=== PATIENT | female | born 1950 | race Caucasian/White ===

== ENCOUNTER 2017-06-29 08:36 | Outpatient (CLI) | payer BC ==
--- NOTE | 2017-06-29 09:34 | RAD ---
2 VIEWS CHEST: Date: 06/29/17 COMPARISON: 03/27/17. HISTORY: Dyspnea. FINDINGS: Two views of the chest show normal sized cardiomediastinal silhouette. There is no evidence of conso lidation, mass, or pleural effusion. The bones are unremarkable. IMPRESSION: No evidence of acute cardiopulmonary disease. POS: [facility]
== END 2017-06-29 08:37 | disposition home or self-care (01) ==
LOC: RAD 08:36
PROVIDERS: ATTEND Internal Medicine Critical Care Medicine
DX: R06.00 Dyspnea, unspecified (principal); R09.02 Hypoxemia
CPT/HCPCS: 71020; 82805

== ENCOUNTER 2017-06-29 09:58 | Outpatient (CLI) | payer BC ==
[2017-06-29 10:47] LABS: Sodium 142 mmol/L (135-148)
[2017-06-29 10:59] LABS: Vent NO
[2017-06-29 11:00] LABS: Mode RA
== END 2017-06-29 09:59 | disposition home or self-care (01) ==
LOC: CP 09:58
PROVIDERS: ATTEND Internal Medicine Critical Care Medicine
DX: R09.02 Hypoxemia (principal)
CPT/HCPCS: 82805

== ENCOUNTER 2018-11-11 15:07 | Inpatient (IN) | payer MEDICARE, BC ==
[2018-11-11] MEDS ORDERED: Morphine 4 MG/ML VIAL ONE ×3 (15:53→17:56)
[2018-11-11 16:06] LABS: Hemoglobin 9.7 g/dL (12.0-16.0); Mean Corpuscular HGB CONC 30.9 g/dL (32.0-36.0); Mean Corpuscular Hemoglobin 34.8 pg (27.0-31.0); Platelet Count 680 thou/uL (130-400); RBC Distribution Width 11.4 % (11.5-14.5); Red Blood Cell (RBC) Count 2.78 mill/uL (4.20-5.40); White Blood Cell (WBC) Count 13.7 thou/uL (4.8-10.8)
[2018-11-11 16:12] LABS: INR-International Normal Ratio 1.1; PTT 32.6 SEC (22.9-36.1); Prothrombin Time 13.8 SEC (12.0-14.7)
--- NOTE | 2018-11-11 16:14 | RAD ---
LEFT ANKLE TWO VIEWS: HISTORY: Left ankle pain. Fall five days ago. TECHNIQUE: AP and lateral views of the left ankle are obtained. FINDINGS: Images demonstrate previous medial malleolar surgical screws in place. Some tibiotalar degenerative changes are seen. No evidence of acute fractures, subluxations, or acute left ankle abnormalities seen. IMPRESSION: No evidence of acute left ankle fractures. POS: [facility]
--- NOTE | 2018-11-11 16:16 | RAD ---
LEFT HIP TWO VIEWS: TECHNIQUE: AP and lateral views of the left hip are obtained. FINDINGS: Again, extensive long-shaft arthroplasty is seen throughout the entire proximal mid and distal left f emoral medullary cavity, extending through the left knee. Again, an intertrochanteric proximal left femoral fracture is seen, as described by Dr. Quick on previous CT from 11/08/2017. There is some displacement of the proximal and distal fracture components. IMPRESSION: Intertrochanteric proximal left femoral fracture. There is some impaction and displacement. POS: [facility]
--- NOTE | 2018-11-11 16:17 | RAD ---
AP VIEW PELVIS: HISTORY: Hip fracture. TECHNIQUE: AP view pelvis is obtained. FINDINGS: Intramedullary anant hardware is seen in the proximal portion of the left femur. A moderately displaced intertrochanteric fracture is seen in the proximal left femur. No other pelvic abnormality is seen. Multilevel changes of spondylosis are seen in the lumbar spine. POS: [facility]
[2018-11-11 16:23] LABS: MDiff Complete? YES; Macrocytosis SLIGHT = 6-15 cells (100X) (0-5/hpf); Platelet Morphology Comment Appears Increased
[2018-11-11 16:27] LABS: ALT (SGPT) 12 U/L (8-55); AST (SGOT) 16 U/L (5-34); Albumin 3.3 g/dL (3.4-4.8); Alkaline Phosphatase 215 U/L (40-150); Anion Gap 15 mmol/L (10-20); BUN (Urea Nitrogen) 22 mg/dL (9.8-20.1); Bilirubin, Total 0.5 mg/dL (0.2-1.2); CK (CPK) 26 U/L (29-168); Calc. Creatinine Clearance 0 mL/min (70-130); Calcium 9.2 mg/dL (7.8-10.44); Carbon Dioxide 24 mmol/L (23-31); Chloride 100 mmol/L (98-107); Estimated GFR-MDRD 64; Globulin 2.4 g/dL (2.4-3.5); Glucose 96 mg/dL (80-115); Lipase 9 U/L (8-78); Protein, Total 5.7 g/dL (6.0-8.3); Sodium 136 mmol/L (136-145)
[2018-11-11 16:29] LABS: Potassium 2.8 mmol/L (3.5-5.1)
[2018-11-11 16:35] LABS: Bilirubin Negative (Negative); Blood, Urine Negative (Negative); Clarity CLEAR (Clear); Glucose, Urine (Dipstick) Negative (Negative); Leukocyte Negative (Negative); Nitrite Negative (Negative); Protein, Urine (Dipstick) Negative (Neg-Trace); pH, Urine 5.5 (5.0-9.0)
[2018-11-11] MEDS ORDERED: Promethazine 25 MG TAB PO PRN (17:50)
--- NOTE | 2018-11-11 18:19 | HP ---
REASON FOR ADMISSION: Left intertrochanteric femur fracture. BRIEF HISTORY OF PRESENT ILLNESS: The patient is a 68-year-old lady, well known to Dr. Sarmad Webster, who fell on October 30, 2018 sustaining trauma to her left proximal femur. Of note, the patient is status post left distal femur fracture treated with a retrograde nail in April of 2012. This new fracture is intertrochanteric in its location, and following the fall, it was opted to proceed with a revision of hardware on an elective basis scheduled for November 13. Unfortunately, the patient has sustained another fall and with this second fall has had some increased left groin pain, and as such, presented to the emergency room , where x-rays demonstrated some increased displacement at the intertrochanteric femur. Given the pain and her obvious difficulty caring for herself and mobilizing, she is now admitted for anticipated revision of hardware of left femur. PAST MEDICAL HISTORY: Remarkable for history of anemia, depression, chronic low back pain, hypothyroidism, and esophageal reflux. In her most recent emergency room note, there is also question of pulmonary embolism. PAST SURGICAL HISTORY: Includes cholecystectomy; hand surgery; open reduction and internal fixation, left ankle; subsequent hardware removal, left ankle; gastrectomy; foot surgery; retrograde intramedullary nail of left femur; lumbar laminectomy; cystoscopy; and splenectomy. MEDICATIONS: Include: 1. Extended-release morphine. 2. Lansoprazole. 3. Pradaxa. 4. Citalopram. 5. Folic acid. 6. Promethazine. 7. Levothyroxine. 8. Alprazolam. 9. Topiramate. 10. Benadryl. ALLERGIES: LISTED ALLERGIES INCLUDE: 1. AMOXICILLIN. 2. CIPROFLOXACIN. 3. CLINDAMYCIN. 4. CODEINE. 5. KEFLEX. 6. TALWIN. 7. FENTANYL. 8. LYRICA. WITH REACTIONS ANYWHERE FROM VOMITING TO JUST PRURITUS. SOCIAL HISTORY: She is a nonsmoker. Drinks alcohol occasionally. Denies recreational drug use. FAMILY HISTORY: Noncontributory for this current admission. REVIEW OF SYSTEMS: Denies recent fevers, chills, or sweats. Denies current chest pain or shortness of breath. Denies numbness or tingling in the lower extremity. PHYSICAL EXAMINATION: VITAL SIGNS: Blood pressure 143/51, heart rate is 75, respiratory rate is 16, O2 saturation is 95% on room air. She is examined in her [facility] in the emergency room of [facility]. GENERAL: She is found to be a very thin and pleasant lady, who appears to be in pain secondary to the left groin discomfort. HEENT: Atraumatic and normocephalic. HEART: Shows a regular rate and rhythm without murmur. CHEST WALL: Nontender. LUNGS: Clear to auscultation bilaterally with good breath sounds. ABDOMEN: Flat and nontender. PELVIS: Stable. EXTREMITIES: Remarkable for a left upper extremity with a skin tear of the proximal forearm as well as a small scab at the distal upper arm. This is from her first fall a little over a week ago. Otherwise, bilateral upper extremities with atraumatic shoulder, elbow, wrist, hands, and denies numbness. The right lower extremity is atraumatic at hip, knee, and ankle. She is wiggling her toes and denies any pain. The left lower extremity is remarkable for pain in the groin with any type of log-rolling or movement of the leg. She is holding the leg in externally rotated and slightly flexed posture at both hip and knee. The knee, ankle, and foot appear atraumatic. LABORATORY DATA: She is found to have a white blood cell count of 13.5, a hematocrit of 31.3, and 680,000 platelets. She has an INR of 1.1. She has a potassium of 2.8 with a sodium of 136, BUN of 22, and a creatinine of 0.88 with a glucose of 96. Her total protein is low, as is the albumin, at 5.7 and 3.3 respectively. IMAGING DATA: X-rays: Two-view x-ray of left femur and AP pelvis x-ray, remarkable for an intertrochanteric femur fracture just above a retrograde intramedullary nail. A three-view x-ray of left ankle was also obtained, which is remarkable for no obvious fracture. ASSESSMENT: A 68-year-old lady, status post fall x2 with minimally displaced intertrochanteric femur above a retrograde intramedullary nail of the same femur. The patient with multiple comorbidities. PLAN: At this time, the patient is admitted to the Orthopedic Fracture Service , and care will be passed off to Dr. Webster tomorrow morning. We have asked [facility] to become involved with medical management of this patient including potassium replacement. The plan at this time is to admit the patient and provide comfort and ongoing medical care with plans to proceed to the operating room for removal of retrograde nail and placement of a long TFN device to stabilize both the femoral shaft and to treat the intertrochanteric fracture. Informed consent will be obtained by Dr. Webster, and further x-rays if appropriate will be ordered by Dr. Webster as well. Job ID: [id number] MTDD
[2018-11-11] MEDS: diphenhydrAMINE 25 MG CAP PO SCH (21:42)
[2018-11-11] MEDS: ALPRAZolam 0.25 MG TAB PO SCH (21:42)
[2018-11-11] MEDS: Docusate 100 MG CAP PO SCH (21:43)
[2018-11-11] MEDS: Topiramate 100 MG TAB PO SCH (21:44)
[2018-11-11] MEDS: HYDROcodone/Acetaminophen 5/325 mg Tablet PO SCH (21:47)
[2018-11-11] MEDS: Zonisamide 25 MG CAP PO SCH (21:47)
[2018-11-11 23:44] VITALS: BMI 15.5
[2018-11-12] MEDS: Morphine 4 MG/ML VIAL SLOW IVP PRN ×2 (01:12→07:00)
--- NOTE | 2018-11-12 01:32 | PDOC.PN ---
- Subjective Encounter Start Date: 11/11/18 Encounter Start Time: 18:15 CONSULTATION NOTE: REFERRING PHYSICIAN: DR. HAIDER REASON FOR REFERRAL: Hypokalemia. HISTORY OF PRESENT ILLNESS: Ms. Mcmahan is a pleasant 68 year old woman presenting to the ED today following a fall. She was walking her dogs when one of them got underneath her and caused her to lose her balance and fall. Similar episode happened recently. Imaging studies done today have demonstrated a displaced proximal left femur fracture. She has been seen by Ortho and will be undergoing surgery on Monday. Laboratory studies done in the ER were notable for a low potassium of 2.2 which the patients states is a chronic issue for her. She was previously on regular oral replacement however due to the large size of the pills she stopped taking it. Additionally, she reports being on a course of antibiotics recently due to erythema involving hardware in the left ankle. She states this is chronic as well but she was treated prophylactically due to slight increased redness. She has otherwise been in her usual state of health. - Objective FULL CODE. MAR Reviewed: Yes Vital Signs & Weight: Vital Signs (12 hours) Temp Pulse Resp BP Pulse Ox 11/12/18 00:36 98.4 F 69 20 111/67 93 L 11/11/18 23:56 94 L 11/11/18 19:15 98.6 F 62 18 128/70 94 L Weight Weight 88 lb Result Diagrams: 11/11/18 15:56 11/11/18 15:56 Phys Exam - Physical Examination Constitutional: NAD HEENT: PERRLA, moist MMs, oral pharynx no lesions Neck: supple, full ROM Respiratory: no wheezing, no rales, no rhonchi, clear to auscultation bilateral Cardiovascular: RRR, no significant murmur, no rub Gastrointestinal: soft, non-tender, no distention, positive bowel sounds Musculoskeletal: pulses present Left lower extremity shortened and externally rotated Slight erythema to left ankle, she states it is at baseline. Neurological: normal sensation Psychiatric: normal affect, A&O x 3 Skin: no rash, cap refill <2 seconds Dx/Plan (1) Femur fracture, left Code(s): S72.92XA - UNSP FRACTURE OF LEFT FEMUR, INIT ENCNTR FOR CLOSED FRACTURE Status: Acute (2) Hypokalemia Code(s): E87.6 - HYPOKALEMIA Status: Acute (3) Constipation Code(s): K59.00 - CONSTIPATION, UNSPECIFIED Status: Acute - Plan cont current plan of care K+ replaced by Dr. Haider in ED. We will give additional replacement. -: Recheck K+ in the morning and continue to replace as necessary. -: Miralax daily for constipation. * . Review of Systems - Review of Systems Constitutional: negative: fever, chills, sweats, weakness, malaise Respiratory: negative: Cough, Dry, Shortness of Breath, Hemoptysis, SOB with Excertion, Pleuritic Pain, Sputum Cardiovascular: negative: chest pain, palpitations, orthopnea, paroxysmal nocturnal dyspnea, edema, light headedness Gastrointestinal: Constipation (chronic). negative: Nausea, Vomiting, Abdominal Pain, Diarrhea, Melena, Hematochezia Genitourinary: negative: Dysuria, Frequency, Incontinence, Hematuria, Retention Musculoskeletal: Leg Pain (left lower extremity) Skin: negative: Rash, Lesions, Omari, Bruising, Other Neurological: negative: Weakness, Numbness, Incoordination, Change in Speech, Confusion, Seizures - Medications/Allergies Allergies/Adverse Reactions: Allergies Allergy/AdvReac Type Severity Reaction Status Date / Time Penicillins Allergy Intermediate Rash Verified 05/18/17 12:57 amoxicillin [Amoxicillin] Allergy Verified 05/18/17 12:57 cephalexin monohydrate Allergy Verified 05/18/17 12:57 [From Keflex] ciprofloxacin Allergy Verified 05/18/17 12:57 clindamycin Allergy Verified 05/18/17 12:57 codeine Allergy Verified 05/18/17 12:57 fentanyl Allergy Verified 11/12/18 00:10 pentazocine lactate Allergy Verified 05/18/17 12:57 [From Talwin] pregabalin [From Lyrica] Allergy Verified 11/11/18 23:08 Medications: Current Medications Hydrocodone Bitart/Acetaminophen ([place] 5/325) 2 tab PO Q8HR [facility] Last Admin: 11/11/18 21:47 Dose: 2 tab Alprazolam (Xanax) 0.5 mg PO BID [facility] Last Admin: 11/11/18 21:42 Dose: 0.5 mg Citalopram Hydrobromide (Celexa) 20 mg PO DAILY [facility] Cyanocobalamin (Vitamin B-12) 1,000 mcg IM Q7DAYS [facility] Diphenhydramine HCl (Benadryl) 50 mg PO TID [facility] Last Admin: 11/11/18 21:42 Dose: 50 mg Docusate Sodium (Colace) 200 mg PO HS [facility] Last Admin: 11/11/18 21:43 Dose: 200 mg Folic Acid (Folvite) 1 mg PO DAILY [facility] Levothyroxine Sodium (Synthroid) 50 mcg PO 0600 [facility] Loratadine (Claritin) 10 mg PO DAILY [facility] Morphine Sulfate (Morphine) 2 mg SLOW IVP Q2H PRN PRN Reason: Moderate Pain (4-6) Last Admin: 11/12/18 01:12 Dose: 2 mg Pantoprazole Sodium (Protonix) 40 mg PO BID [facility] Polyethylene Glycol (Miralax) 17 gm PO DAILY [facility] Multivit/Folic Acid/Iron ( Vitamin) 1 tab PO DAILY [facility] Promethazine HCl (Phenergan) 25 mg PO Q6H PRN PRN Reason: Nausea Sodium Chloride (Flush - Normal Saline) 10 ml IVF PRN PRN PRN Reason: Saline Flush Topiramate (Topamax) 100 mg PO BID [facility] Last Admin: 11/11/18 21:44 Dose: 100 mg Zonisamide (Zonisamide) 50 mg PO HS [facility] Last Admin: 11/11/18 21:47 Dose: 50 mg
[2018-11-12] MEDS: Levothyroxine Sodium 50 MCG TAB PO SCH (06:56)
[2018-11-12] MEDS: HYDROcodone/Acetaminophen 5/325 mg Tablet PO SCH (07:24)
[2018-11-12] MEDS ORDERED: Non-Formulary Item 1 EACH (Biotin [Biotin] 1 MG) PO SCH (09:00)
[2018-11-12] MEDS: Topiramate 100 MG TAB PO SCH ×2 (09:02→21:27)
[2018-11-12] MEDS: ALPRAZolam 0.25 MG TAB PO SCH ×2 (09:02→21:25)
[2018-11-12] MEDS: Prenatal Vitamin 1 TAB PO SCH (09:03)
[2018-11-12] MEDS: Citalopram 20 MG TAB PO SCH (09:03)
[2018-11-12] MEDS: diphenhydrAMINE 25 MG CAP PO SCH ×3 (09:03→21:27)
[2018-11-12] MEDS: Polyethylene Glycol 3350 17 GM Packet PO SCH (09:03)
[2018-11-12] MEDS: Loratadine 10 MG TAB PO SCH (09:03)
[2018-11-12] MEDS: Folic Acid 1 MG TAB PO SCH (09:03)
[2018-11-12] MEDS ORDERED: Acetaminophen 325 MG TAB PO PRN (09:13)
[2018-11-12] MEDS ORDERED: Morphine ER 30 MG TAB PO SCH (10:00)
--- NOTE | 2018-11-12 10:10 | PRG ---
DATE OF SERVICE: 11/12/2018 SUBJECTIVE: Nanda is a 68-year-old white female, who was admitted by Dr. Layne yesterday evening after a fall at home yesterday. She has been actively followed by Dr. Juan A Webster and was actually on the surgery schedule for an elective left hip periprosthetic fracture revision from a retrograde nail in the left femur, which was placed for a distal femoral fracture in April of 2012. More recently, she has fallen and had a small intertrochanteric femur fracture on the left, which is nondisplaced just above the tip of her retrograde nail. The plan was to admit the patient, remove the retrograde nail, and revise her with an antegrade intramedullary nail to treat the new intertrochanteric hip fracture. Unfortunately, she fell and was admitted by Dr. Layne. She has been admitted, and Dr. Webster is assuming care with intentions of performing surgery tomorrow. OBJECTIVE: GENERAL: She is alert and oriented to person, place, time, and situation. Grossly nonfocal. VITAL SIGNS: Temperature 98.4, pulse 69, respiratory rate is 29 and unlabored with 97% on room air, and blood pressure is 121/72. CHEST: Clear to auscultation. ABDOMEN: Soft. Benign. She is a thin female, appears a little under nourished. MUSCULOSKELETAL: She does have pain with palpation in the left groin, but her toes are oriented toward the ceiling. There is no external or internal rotation of the left lower extremity. There is no shortening relative to the right. IMAGING STUDIES: Two views of the left hip and AP pelvis demonstrate a small near transverse intertrochanteric hip fracture on the left, periprosthetic in nature. It is at the level of the distal aspect of her retrograde intramedullary nail. The distal femur appears to have healed completely. IMPRESSION: 1. New left hip periprosthetic near transverse intertrochanteric hip fracture with minimal displacement. 2. Severe osteopenia. 3. Chronic anemia. The patient did require 2 units of packed red blood cells after her last intermedullary nail in 2011. PLAN: 1. The patient will be held n.p.o. after midnight tonight. 2. The risks, benefits, options, alternatives, and rationale for proceeding with conversion of left hip retrograde intermedullary fixation to antegrade intertrochanteric fixation has been explained in great detail to the patient, she wanted to proceed and all questions were answered. No guarantee of outcome stated or implied. 3. I will change her pain medication regimen to her sustained release morphine 30 mg q.8 hours. 4. Please see orders. The patient has been posted for approximately 11 a.m. tomorrow morning. Job ID: [id number]
[2018-11-12] MEDS: Acetaminophen ER (8hr) 650 MG TAB PO PRN ×2 (10:39→21:26)
--- NOTE | 2018-11-12 11:47 | PDOC.PN ---
- Subjective Encounter Start Date: 11/12/18 Encounter Start Time: 08:00 -: old records requested/rev at home pt's functional status is limited, she is malnourished, she does not have angina or CHF symptoms - Objective MAR Reviewed: Yes Vital Signs & Weight: Vital Signs (12 hours) Temp Pulse Resp BP Pulse Ox 11/12/18 11:12 98.5 F 62 18 92/47 L 90 L 11/12/18 08:00 95 11/12/18 07:20 98.6 F 62 18 109/61 11/12/18 04:42 98.1 F 62 20 121/72 97 11/12/18 00:36 98.4 F 69 20 111/67 93 L 11/11/18 23:56 94 L Weight Weight 88 lb I&O: 11/11/18 11/12/18 11/13/18 06:59 06:59 06:59 Intake Total 720 Output Total 600 Balance 120 Result Diagrams: 11/11/18 15:56 11/11/18 15:56 Radiology Reviewed by me: Yes EKG Reviewed by me: Yes Phys Exam - Physical Examination Constitutional: NAD HEENT: PERRLA, moist MMs, sclera anicteric Neck: no JVD, supple Respiratory: no wheezing, no rales, no rhonchi Cardiovascular: RRR, no significant murmur, no rub Gastrointestinal: soft, non-tender, no distention, positive bowel sounds Musculoskeletal: no edema, pulses present Neurological: moves all 4 limbs Lymphatic: no nodes Psychiatric: normal affect Skin: no rash, normal turgor Dx/Plan (1) Femur fracture, left Code(s): S72.92XA - UNSP FRACTURE OF LEFT FEMUR, INIT ENCNTR FOR CLOSED FRACTURE Status: Acute (2) Constipation Code(s): K59.00 - CONSTIPATION, UNSPECIFIED Status: Acute (3) Hypokalemia Code(s): E87.6 - HYPOKALEMIA Status: Acute (4) Anemia due to vitamin B12 deficiency Code(s): D51.9 - VITAMIN B12 DEFICIENCY ANEMIA, UNSPECIFIED Status: Chronic (5) Arthritis Code(s): M19.90 - UNSPECIFIED OSTEOARTHRITIS, UNSPECIFIED SITE Status: Chronic (6) CKD (chronic kidney disease) stage 2, GFR 60-89 ml/min Code(s): N18.2 - CHRONIC KIDNEY DISEASE, STAGE 2 (MILD) Status: Chronic (7) Chronic pain syndrome Code(s): G89.4 - CHRONIC PAIN SYNDROME Status: Chronic (8) GERD (gastroesophageal reflux disease) Code(s): K21.9 - GASTRO-ESOPHAGEAL REFLUX DISEASE WITHOUT ESOPHAGITIS Status: Chronic (9) H/O splenectomy Code(s): Z90.81 - ACQUIRED ABSENCE OF SPLEEN Status: Chronic (10) HTN (hypertension) Code(s): I10 - ESSENTIAL (PRIMARY) HYPERTENSION Status: Chronic Qualifiers: Hypertension type: essential hypertension Qualified Code(s): I10 - Essential (primary) hypertension (11) Hx pulmonary embolism Code(s): Z86.711 - PERSONAL HISTORY OF PULMONARY EMBOLISM Status: Chronic (12) Osteoporosis Code(s): M81.0 - AGE-RELATED OSTEOPOROSIS W/O CURRENT PATHOLOGICAL FRACTURE Status: Chronic (13) Protein-calorie malnutrition, moderate Code(s): E44.0 - MODERATE PROTEIN-CALORIE MALNUTRITION Status: Chronic (14) Anxiety and depression Code(s): F41.9 - ANXIETY DISORDER, UNSPECIFIED; F32.9 - MAJOR DEPRESSIVE DISORDER, SINGLE EPISODE, UNSPECIFIED Status: Chronic - Plan cont current plan of care * pt is planned for surgery tomorrow * she has no absolute contraindication for surgery but her overall condition makes her at risk for surgery for delayed wound healing and recovery and high chance of need for placement * medication reviewed as below * symptomatic treatment. Review of Systems - Review of Systems Constitutional: weakness. negative: fever, chills, sweats, malaise, other ENT: negative: Ear Pain, Ear Discharge, Nose Pain, Nose Discharge, Nose Congestion, Mouth Pain, Mouth Swelling, Throat Pain, Throat Swelling, Other Respiratory: SOB with Excertion. negative: Cough, Dry, Shortness of Breath, Hemoptysis, Pleuritic Pain, Sputum, Wheezing Cardiovascular: negative: chest pain, palpitations, orthopnea, paroxysmal nocturnal dyspnea, edema, light headedness, other Gastrointestinal: negative: Nausea, Vomiting, Abdominal Pain, Diarrhea, Constipation, Melena, Hematochezia, Other Genitourinary: negative: Dysuria, Frequency, Incontinence, Hematuria, Retention , Other Musculoskeletal: negative: Neck Pain, Shoulder Pain, Arm Pain, Back Pain, Hand Pain, Leg Pain, Foot Pain, Other - Medications/Allergies Allergies/Adverse Reactions: Allergies Allergy/AdvReac Type Severity Reaction Status Date / Time Penicillins Allergy Intermediate Rash Verified 05/18/17 12:57 amoxicillin [Amoxicillin] Allergy Verified 05/18/17 12:57 cephalexin monohydrate Allergy Verified 05/18/17 12:57 [From Keflex] ciprofloxacin Allergy Verified 05/18/17 12:57 clindamycin Allergy Verified 05/18/17 12:57 codeine Allergy Verified 05/18/17 12:57 fentanyl Allergy Verified 11/12/18 00:10 pentazocine lactate Allergy Verified 05/18/17 12:57 [From Talwin] pregabalin [From Lyrica] Allergy Verified 11/11/18 23:08 Medications: Current Medications Acetaminophen (Tylenol Er (8hr Arthritis Pain)) 650 mg PO Q6H PRN PRN Reason: Pain Last Admin: 11/12/18 10:39 Dose: 650 mg Alprazolam (Xanax) 0.5 mg PO BID [facility] Last Admin: 11/12/18 09:02 Dose: 0.5 mg Citalopram Hydrobromide (Celexa) 20 mg PO DAILY [facility] Last Admin: 11/12/18 09:03 Dose: 20 mg Cyanocobalamin (Vitamin B-12) 1,000 mcg IM Q7DAYS [facility] Diphenhydramine HCl (Benadryl) 50 mg PO TID [facility] Last Admin: 11/12/18 09:03 Dose: 50 mg Docusate Sodium (Colace) 200 mg PO HS [facility] Last Admin: 11/11/18 21:43 Dose: 200 mg Folic Acid (Folvite) 1 mg PO DAILY [facility] Last Admin: 11/12/18 09:03 Dose: 1 mg Levothyroxine Sodium (Synthroid) 50 mcg PO 0600 [facility] Last Admin: 11/12/18 06:56 Dose: 50 mcg Loratadine (Claritin) 10 mg PO DAILY [facility] Last Admin: 11/12/18 09:03 Dose: 10 mg Morphine Sulfate (Morphine) 2 mg SLOW IVP Q2H PRN PRN Reason: Moderate Pain (4-6) Last Admin: 11/12/18 07:00 Dose: 2 mg Morphine Sulfate (Ms Contin) 30 mg PO Q8HR [facility] Last Admin: 11/12/18 10:38 Dose: 30 mg Pantoprazole Sodium (Protonix) 40 mg PO BID [facility] Last Admin: 11/12/18 09:02 Dose: 40 mg Polyethylene Glycol (Miralax) 17 gm PO DAILY [facility] Last Admin: 11/12/18 09:03 Dose: 17 gm Multivit/Folic Acid/Iron ( Vitamin) 1 tab PO DAILY [facility] Last Admin: 11/12/18 09:03 Dose: 1 tab Promethazine HCl (Phenergan) 25 mg PO Q6H PRN PRN Reason: Nausea Sodium Chloride (Flush - Normal Saline) 10 ml IVF PRN PRN PRN Reason: Saline Flush Topiramate (Topamax) 100 mg PO BID [facility] Last Admin: 11/12/18 09:02 Dose: 100 mg Zonisamide (Zonisamide) 50 mg PO HS [facility] Last Admin: 11/11/18 21:47 Dose: 50 mg
[2018-11-12] MEDS: Docusate 100 MG CAP PO SCH (21:26)
[2018-11-12] MEDS: Zonisamide 25 MG CAP PO SCH (21:26)
[2018-11-12] MEDS: Morphine ER 30 MG TAB PO SCH (22:08)
[2018-11-13] MEDS: Levothyroxine Sodium 50 MCG TAB PO SCH (06:08)
[2018-11-13] MEDS: Morphine ER 30 MG TAB PO SCH ×3 (06:09→22:20)
[2018-11-13 07:17] LABS: #Basophils 0.1 thou/uL (0.0-0.2); #Eosinphils 0.3 thou/uL (0.0-0.7); #Lymphocytes 3.8 thou/uL (1.20-3.40); #Monocytes 1.3 thou/uL (0.11-0.59); #Neutrophils 11.2 thou/uL (1.40-6.50); %Basophils 0.8 % (0.0-1.0); %Eosinophils 1.7 % (0.0-10.0); %Monocytes 7.8 % (0.0-10.0); %Neutrophils 66.8 % (42.0-75.0); Hemoglobin 9.8 g/dL (12.0-16.0); Mean Corpuscular HGB CONC 30.2 g/dL (32.0-36.0); Mean Corpuscular Hemoglobin 34.1 pg (27.0-31.0); Mean Platelet Volume 8.5 fL (7.4-10.4); Platelet Count 778 thou/uL (130-400); RBC Distribution Width 11.5 % (11.5-14.5); Red Blood Cell (RBC) Count 2.88 mill/uL (4.20-5.40); White Blood Cell (WBC) Count 16.7 thou/uL (4.8-10.8)
[2018-11-13 07:28] LABS: ALT (SGPT) 9 U/L (8-55); AST (SGOT) 18 U/L (5-34); Albumin 2.9 g/dL (3.4-4.8); Alkaline Phosphatase 226 U/L (40-150); Anion Gap 9 mmol/L (10-20); BUN (Urea Nitrogen) 19 mg/dL (9.8-20.1); Bilirubin, Total 0.4 mg/dL (0.2-1.2); Calc. Creatinine Clearance 46 mL/min (70-130); Calcium 9.5 mg/dL (7.8-10.44); Carbon Dioxide 25 mmol/L (23-31); Chloride 111 mmol/L (98-107); Estimated GFR-MDRD 76; Globulin 2.3 g/dL (2.4-3.5); Glucose 85 mg/dL (80-115); Potassium 4.1 mmol/L (3.5-5.1); Protein, Total 5.2 g/dL (6.0-8.3); Sodium 141 mmol/L (136-145)
[2018-11-13] MEDS ORDERED: Midazolam HCl 2 mg/2 ml Vial ONE (10:11)
[2018-11-13] MEDS ORDERED: Lidocaine 1% (PF) 30 ML VIAL ONE (10:11)
[2018-11-13] MEDS ORDERED: Fentanyl 100 MCG/2 ML VIAL ONE (10:11)
[2018-11-13] MEDS ORDERED: Dexamethasone 4 mg/ml Vial ONE (10:12)
--- NOTE | 2018-11-13 10:22 | PDOC.PN ---
- Subjective Encounter Start Date: 11/13/18 Encounter Start Time: 07:30 Patient seen and examined. No new complaints. No overnight events - Objective MAR Reviewed: Yes Vital Signs & Weight: Vital Signs (12 hours) Temp Pulse Resp BP Pulse Ox 11/13/18 07:10 98.2 F 68 14 112/69 95 11/13/18 04:43 98.2 F 66 18 125/70 95 11/13/18 02:24 97 11/13/18 00:26 97.8 F 63 18 116/64 94 L Weight Admit Weight 88 lb Weight 88 lb I&O: 11/12/18 11/13/18 11/14/18 06:59 06:59 06:59 Intake Total 1620 Output Total 1050 Balance 570 Result Diagrams: 11/13/18 06:50 11/13/18 06:50 Phys Exam - Physical Examination Constitutional: NAD HEENT: PERRLA, moist MMs, sclera anicteric Neck: no JVD, supple Respiratory: no wheezing, no rales, no rhonchi Cardiovascular: RRR, no significant murmur, no rub Gastrointestinal: soft, non-tender, no distention, positive bowel sounds Musculoskeletal: no edema, pulses present Neurological: non-focal, normal sensation Lymphatic: no nodes Psychiatric: normal affect, A&O x 3 Skin: no rash, normal turgor Dx/Plan (1) Constipation Code(s): K59.00 - CONSTIPATION, UNSPECIFIED Status: Acute (2) Femur fracture, left Code(s): S72.92XA - UNSP FRACTURE OF LEFT FEMUR, INIT ENCNTR FOR CLOSED FRACTURE Status: Acute (3) Hypokalemia Code(s): E87.6 - HYPOKALEMIA Status: Acute (4) Anemia due to vitamin B12 deficiency Code(s): D51.9 - VITAMIN B12 DEFICIENCY ANEMIA, UNSPECIFIED Status: Chronic (5) Arthritis Code(s): M19.90 - UNSPECIFIED OSTEOARTHRITIS, UNSPECIFIED SITE Status: Chronic (6) CKD (chronic kidney disease) stage 2, GFR 60-89 ml/min Code(s): N18.2 - CHRONIC KIDNEY DISEASE, STAGE 2 (MILD) Status: Chronic (7) Chronic pain syndrome Code(s): G89.4 - CHRONIC PAIN SYNDROME Status: Chronic (8) GERD (gastroesophageal reflux disease) Code(s): K21.9 - GASTRO-ESOPHAGEAL REFLUX DISEASE WITHOUT ESOPHAGITIS Status: Chronic (9) H/O splenectomy Code(s): Z90.81 - ACQUIRED ABSENCE OF SPLEEN Status: Chronic (10) HTN (hypertension) Code(s): I10 - ESSENTIAL (PRIMARY) HYPERTENSION Status: Chronic Qualifiers: Hypertension type: essential hypertension Qualified Code(s): I10 - Essential (primary) hypertension (11) Hx pulmonary embolism Code(s): Z86.711 - PERSONAL HISTORY OF PULMONARY EMBOLISM Status: Chronic (12) Osteoporosis Code(s): M81.0 - AGE-RELATED OSTEOPOROSIS W/O CURRENT PATHOLOGICAL FRACTURE Status: Chronic (13) Protein-calorie malnutrition, moderate Code(s): E44.0 - MODERATE PROTEIN-CALORIE MALNUTRITION Status: Chronic (14) Anxiety and depression Code(s): F41.9 - ANXIETY DISORDER, UNSPECIFIED; F32.9 - MAJOR DEPRESSIVE DISORDER, SINGLE EPISODE, UNSPECIFIED Status: Chronic - Plan cont current plan of care * today plan for surgery * post op, rehab in hospital * pt wanted to go home on discharge * medication reviewed as below * symptomatic treatment. Review of Systems - Review of Systems ENT: negative: Ear Pain, Ear Discharge, Nose Pain, Nose Discharge, Nose Congestion, Mouth Pain, Mouth Swelling, Throat Pain, Throat Swelling, Other Respiratory: negative: Cough, Dry, Shortness of Breath, Hemoptysis, SOB with Excertion, Pleuritic Pain, Sputum, Wheezing Cardiovascular: negative: chest pain, palpitations, orthopnea, paroxysmal nocturnal dyspnea, edema, light headedness, other Gastrointestinal: negative: Nausea, Vomiting, Abdominal Pain, Diarrhea, Constipation, Melena, Hematochezia, Other Genitourinary: negative: Dysuria, Frequency, Incontinence, Hematuria, Retention , Other Musculoskeletal: Leg Pain. negative: Neck Pain, Shoulder Pain, Arm Pain, Back Pain, Hand Pain, Foot Pain, Other - Medications/Allergies Allergies/Adverse Reactions: Allergies Allergy/AdvReac Type Severity Reaction Status Date / Time Penicillins Allergy Intermediate Rash Verified 05/18/17 12:57 amoxicillin [Amoxicillin] Allergy Verified 05/18/17 12:57 cephalexin monohydrate Allergy Verified 05/18/17 12:57 [From Keflex] ciprofloxacin Allergy Verified 05/18/17 12:57 clindamycin Allergy Verified 05/18/17 12:57 codeine Allergy Verified 05/18/17 12:57 fentanyl Allergy Verified 11/12/18 00:10 pentazocine lactate Allergy Verified 05/18/17 12:57 [From Talwin] pregabalin [From Lyrica] Allergy Verified 11/11/18 23:08 Medications: Current Medications Acetaminophen (Tylenol Er (8hr Arthritis Pain)) 650 mg PO Q6H PRN PRN Reason: Pain Last Admin: 11/12/18 21:26 Dose: 650 mg Alprazolam (Xanax) 0.5 mg PO BID [facility] Last Admin: 11/12/18 21:25 Dose: 0.5 mg Citalopram Hydrobromide (Celexa) 20 mg PO DAILY [facility] Last Admin: 11/12/18 09:03 Dose: 20 mg Cyanocobalamin (Vitamin B-12) 1,000 mcg IM Q7DAYS [facility] Diphenhydramine HCl (Benadryl) 50 mg PO TID [facility] Last Admin: 11/12/18 21:27 Dose: 50 mg Docusate Sodium (Colace) 200 mg PO HS [facility] Last Admin: 11/12/18 21:26 Dose: 200 mg Folic Acid (Folvite) 1 mg PO DAILY [facility] Last Admin: 11/12/18 09:03 Dose: 1 mg Levothyroxine Sodium (Synthroid) 50 mcg PO 0600 [facility] Last Admin: 11/13/18 06:08 Dose: 50 mcg Loratadine (Claritin) 10 mg PO DAILY [facility] Last Admin: 11/12/18 09:03 Dose: 10 mg Morphine Sulfate (Morphine) 2 mg SLOW IVP Q2H PRN PRN Reason: Moderate Pain (4-6) Last Admin: 11/12/18 07:00 Dose: 2 mg Morphine Sulfate (Ms Contin) 30 mg PO Q8HR [facility] Last Admin: 11/13/18 06:09 Dose: 30 mg Pantoprazole Sodium (Protonix) 40 mg PO BID [facility] Last Admin: 11/12/18 21:27 Dose: 40 mg Polyethylene Glycol (Miralax) 17 gm PO DAILY [facility] Last Admin: 11/12/18 09:03 Dose: 17 gm Multivit/Folic Acid/Iron ( Vitamin) 1 tab PO DAILY [facility] Last Admin: 11/12/18 09:03 Dose: 1 tab Promethazine HCl (Phenergan) 25 mg PO Q6H PRN PRN Reason: Nausea Sodium Chloride (Flush - Normal Saline) 10 ml IVF PRN PRN PRN Reason: Saline Flush Topiramate (Topamax) 100 mg PO BID [facility] Last Admin: 11/12/18 21:27 Dose: 100 mg Zonisamide (Zonisamide) 50 mg PO HS [facility] Last Admin: 11/12/18 21:26 Dose: 50 mg
[2018-11-13] MEDS ORDERED: Morphine 4 MG/ML VIAL ONE ×2 (10:32→14:30)
[2018-11-13] MEDS ORDERED: Gentamicin 80 MG/2 ML VIAL ONE (11:06)
[2018-11-13] MEDS ORDERED: Fleet Enema 133 ML BOT PR PRN (11:09)
[2018-11-13] MEDS ORDERED: traMADol HCl 50 MG TAB PO PRN ×2 (11:09)
[2018-11-13] MEDS ORDERED: Cepastat Lozenges 1 LOZ PO PRN (11:09)
[2018-11-13] MEDS ORDERED: Ondansetron ODT 4 MG TAB PO PRN (11:09)
[2018-11-13] MEDS ORDERED: Milk Of Magnesia 30 ML UDCUP PO PRN (11:09)
[2018-11-13] MEDS ORDERED: Bisacodyl 10 MG SUPP PR PRN (11:09)
[2018-11-13] MEDS ORDERED: Ondansetron PF 4 MG/2 ML Vial IVP PRN ×2 (11:09→15:12)
[2018-11-13] MEDS ORDERED: Morphine 10 MG/ML VIAL ONE (11:51)
[2018-11-13] MEDS ORDERED: Bupivacaine HCl 0.5%/Epinephrine 1:200,000/PF 30 ml Vial ONE (12:27)
[2018-11-13] MEDS ORDERED: Rocuronium Bromide 10 MG/ML (10ML VIAL) ONE (12:33)
[2018-11-13] MEDS ORDERED: ePHEDrine 50 MG/ML VIAL ONE (12:33)
[2018-11-13] MEDS ORDERED: PROPOFOL 200 MG/20 ML VIAL ONE (12:33)
[2018-11-13] MEDS ORDERED: Glycopyrrolate 0.2 MG/ML 5 ML SYRINGE ONE (12:33)
[2018-11-13] MEDS ORDERED: Ondansetron PF 4 MG/2 ML Vial ONE (12:33)
[2018-11-13] MEDS ORDERED: Promethazine HCl 25 MG/ML VIAL IM PRN ×2 (12:35→15:12)
[2018-11-13] MEDS ORDERED: Morphine Sulfate 2 MG/ML SYRINGE SLOW IVP PRN (12:35)
[2018-11-13] MEDS ORDERED: Promethazine HCl 25 MG/ML VIAL SLOW IVP PRN (12:35)
[2018-11-13] MEDS ORDERED: Ondansetron HCl/PF 4 MG/2 ML Vial IVP PRN (12:35)
[2018-11-13] MEDS ORDERED: Morphine 2 MG/ML SYRINGE ONE ×2 (14:43→15:12)
[2018-11-13] MEDS ORDERED: Ketorolac Tromethamine 30 MG/ML VIAL ONE (14:59)
[2018-11-13] MEDS ORDERED: Naloxone HCl 0.4 mg/ml Vial IV PRN (15:12)
[2018-11-13] MEDS ORDERED: Morphine CADD 1 MG/ML CADD IV PRN (15:12)
[2018-11-13] MEDS ORDERED: Zolpidem Tartrate 5 MG TAB PO PRN (15:12)
[2018-11-13] MEDS ORDERED: diphenhydrAMINE 25 MG CAP PO PRN (15:12)
[2018-11-13] MEDS ORDERED: diphenhydrAMINE 50 MG/ML VIAL IM/IV PRN (15:12)
[2018-11-13] MEDS ORDERED: Acetaminophen 500 MG TAB PO PRN (15:20)
--- NOTE | 2018-11-13 15:26 | RAD ---
LEFT FEMUR 2 VIEWS: HISTORY: Intratrochanteric fracture of the left femur. FINDINGS/IMPRESSION: Four spot fluoroscopic intraoperative images of the left femur demonstrate interval reduction and int ernal fixation of the intratrochanteric fracture seen on 11/11/2018 with a compression screw. There is an intramedullary anant through the shaft of the femur. POS: C
[2018-11-13] MEDS: Citalopram 20 MG TAB PO SCH (18:12)
[2018-11-13] MEDS: diphenhydrAMINE 25 MG CAP PO SCH ×2 (18:13→22:16)
[2018-11-13] MEDS: Folic Acid 1 MG TAB PO SCH (18:13)
[2018-11-13] MEDS: Loratadine 10 MG TAB PO SCH (18:13)
[2018-11-13] MEDS: Polyethylene Glycol 3350 17 GM Packet PO SCH (18:13)
[2018-11-13] MEDS: Prenatal Vitamin 1 TAB PO SCH (18:14)
[2018-11-13] MEDS: Topiramate 100 MG TAB PO SCH ×2 (18:14→22:18)
[2018-11-13] MEDS: Ketorolac Tromethamine 30 MG/ML VIAL IVP SCH (18:18)
[2018-11-13] MEDS: ALPRAZolam 0.25 MG TAB PO SCH (18:52)
[2018-11-13] MEDS: Ferrous Gluconate 324 MG TAB PO SCH (22:17)
[2018-11-13] MEDS: Docusate 100 MG CAP PO SCH (22:17)
[2018-11-13] MEDS: Senokot S 8.6-50 MG TAB PO SCH (22:18)
[2018-11-13] MEDS ORDERED: Vancomycin HCl 1 GM in Premix Bag 1 BAG IVPB SCH (23:00)
[2018-11-13] MEDS: Zonisamide 25 MG CAP PO SCH (23:06)
[2018-11-14] MEDS: Ketorolac Tromethamine 30 MG/ML VIAL IVP SCH ×5 (01:03→23:15)
[2018-11-14] MEDS: Morphine ER 30 MG TAB PO SCH ×3 (05:48→22:05)
[2018-11-14] MEDS: Levothyroxine Sodium 50 MCG TAB PO SCH (05:48)
[2018-11-14 05:57] LABS: Hemoglobin 8.3 g/dL (12.0-16.0); Mean Corpuscular HGB CONC 30.7 g/dL (32.0-36.0); Mean Corpuscular Hemoglobin 35.1 pg (27.0-31.0); Mean Platelet Volume 8.5 fL (7.4-10.4); Platelet Count 668 thou/uL (130-400); RBC Distribution Width 11.6 % (11.5-14.5); Red Blood Cell (RBC) Count 2.35 mill/uL (4.20-5.40); White Blood Cell (WBC) Count 15.3 thou/uL (4.8-10.8)
--- NOTE | 2018-11-14 08:30 | OP ---
DATE OF PROCEDURE: 11/13/2018 PREOPERATIVE DIAGNOSIS: Periprosthetic left hip transverse intertrochanteric hip fracture. POSTOPERATIVE DIAGNOSIS: Periprosthetic left hip transverse intertrochanteric hip fracture. OPERATIVE PROCEDURE: Revision/conversion of left retrograde femoral nail with periprosthetic intertrochanteric hip fracture to antegrade trochanteric entry femoral nail. SUPER[employer]: Navneet Leach PA-C ANESTHESIA: General via endotracheal tube augmented with fascia iliaca peripheral nerve block. COMPONENTS USED: Explantation of retrograde femoral nail with implantation of Synthes 380 mm, 14 mm diameter transfemoral nail with interlocking 95-mm screw, also with a 5 mm interlocking distal 65-mm screw. ESTIMATED BLOOD LOSS: Less than 100. FINDINGS: Fracture described on plain radiographs consisting of near transverse periprosthetic left hip fracture, but poor bone stock noted clinically. DRAINS: None. SPECIMENS: None. COMPLICATIONS: None. COUNTS: Correct. INDICATION FOR SURGERY: Nanda is a 68-year-old white female who fell, has had multiple falls recently resulting in a left hip periprosthetic fracture. She had the retrograde left femoral nail placed in April of 2012 for a distal femoral fracture due to severe osteopenia secondary to malabsorption from a gastrectomy secondary to cancer. She has done relatively well for the last few years and ultimately, has begun to fall again resulting in a periprosthetic fracture on the left hip. She was admitted to the hospital a day prior and has elected to proceed with surgery as definitive treatment of this problem. DESCRIPTION OF PROCEDURE: After informed consent was obtained in the preoperative holding area, the patient received preoperative antibiotics and also received a fascia iliaca block of the left hip. She was taken to the operative suite where general anesthesia was induced, and the patient was positioned appropriately on the fracture table. She was positioned originally in the supine position. Once adequate anesthesia was obtained, left lower extremity was then prepped and draped in usual sterile fashion. Prior to incision, a time-out was called. All members of the surgical team agreed upon site, surgeon, and the patient. The fluoroscopy was then brought into the field, and explantation of the retrograde femoral nail was carried out with a parapatellar tendon incision approach, which was medial to the patellar tendon. We found that the distal aspect of femoral nail was engaged, both distal femoral interlocking screws were removed without any problem, and then attention was then turned blunt dissection into the proximal thigh and proximal interlocking screw was removed, and the nail was then removed with the extraction tools. All these wounds were then closed sequentially, and the procedure was terminated, and drapes were removed. The patient was then repositioned on the fracture table in the extremity boot, and very little traction was required. The extremity was then re-prepped and draped in total. LEFT LONG TRANFEMORAL NAIL PROCEDURE . Job ID: [id number] [facility] CENTERStuart
[2018-11-14] MEDS ORDERED: Enoxaparin Sodium 30 MG/0.3 ML SYRINGE SC SCH (09:00)
[2018-11-14] MEDS: Polyethylene Glycol 3350 17 GM Packet PO SCH (09:40)
[2018-11-14] MEDS: diphenhydrAMINE 25 MG CAP PO SCH ×3 (09:41→20:36)
[2018-11-14] MEDS: Senokot S 8.6-50 MG TAB PO SCH ×2 (09:41→20:36)
[2018-11-14] MEDS: Prenatal Vitamin 1 TAB PO SCH (09:42)
[2018-11-14] MEDS: Folic Acid 1 MG TAB PO SCH (09:42)
[2018-11-14] MEDS: Citalopram 20 MG TAB PO SCH (09:42)
[2018-11-14] MEDS: Multivitamin W/ Minerals 1 TAB PO SCH (09:42)
[2018-11-14] MEDS: Topiramate 100 MG TAB PO SCH ×2 (09:42→20:36)
[2018-11-14] MEDS: Ferrous Gluconate 324 MG TAB PO SCH ×2 (09:42→20:36)
[2018-11-14] MEDS: Loratadine 10 MG TAB PO SCH (09:42)
--- NOTE | 2018-11-14 09:42 | PRG ---
DATE OF SERVICE: 11/14/2018 SUBJECTIVE: Nanda is postop day 1 from a left intertrochanteric hip fracture conversion from an explantation of retrograde distal femoral nail to implantation for definitive treatment of a transfemoral intertrochanteric nail for her periprosthetic fracture. Currently, she is doing relatively well, but she does have significant social complications. She tells me she needs to get home back to her , who has cancer and she cares for him. Right now, this patient is relatively debilitated. She has not gotten out of bed yet. Several stage II decubitus ulcers were identified at Surgery yesterday. I believe she just wants to get home and spend time with her , which I can appreciate. OBJECTIVE: GENERAL: The patient is alert and oriented to person, place, and situation. She is comfortable and conversant. Appropriate with examiner. EXTREMITIES: Left lower extremity demonstrates stable to be intact. There is no strike through. There is no dressing saturation appreciated. She is neurovascularly intact in the involved extremity. There is no malrotation or significant shortening either. LABORATORY DATA: Hemoglobin and hematocrit are 8 and 26 today. I believe she will be with us for the next couple of days, therefore we will recheck hemoglobin and hematocrit serially, but I expect I have give her couple of units at some point. IMPRESSION: 1. A 68-year-old white female with chronic comorbidities to include malnutrition, cachexia, and severe osteopenia. Postop day 1 left hip intertrochanteric primary fixation with long trochanteric fixation nail for periprosthetic fracture requiring retrograde femoral nail extraction. 2. Postoperative anemia superimposed on chronic anemia. PLAN: Continue current care. I will make couple of medication changes to include discontinue Lovenox, placed her back on her Pradaxa 150 b.i.d. She also requests return to her Tylenol Arthritis, which I will take care of to. Otherwise, recheck tomorrow, but consider discharge in about 2 to 3 days. Job ID: [id number]
[2018-11-14] MEDS: Dabigatran 150 mg Capsule PO SCH ×2 (11:14→20:36)
[2018-11-14] MEDS: Acetaminophen ER (8hr) 650 MG TAB PO PRN ×2 (11:15→23:14)
--- NOTE | 2018-11-14 14:29 | PDOC.PN ---
- Subjective Encounter Start Date: 11/14/18 Encounter Start Time: 14:27 Subjective: no fever, sob, chest pain - Objective MAR Reviewed: Yes Vital Signs & Weight: Vital Signs (12 hours) Temp Pulse Resp BP Pulse Ox Pulse Ox 11/14/18 09:52 97 11/14/18 08:16 98.2 F 66 12 107/64 98 11/14/18 04:12 98.3 F 65 14 104/62 94 L Weight Admit Weight 88 lb Weight 88 lb I&O: 11/13/18 11/14/18 11/15/18 06:59 06:59 06:59 Intake Total 1620 1460 Output Total 1050 700 Balance 570 760 Result Diagrams: 11/14/18 05:10 11/13/18 06:50 Phys Exam - Physical Examination Neck: no JVD Respiratory: clear to auscultation bilateral Cardiovascular: RRR, no significant murmur Gastrointestinal: soft, positive bowel sounds Musculoskeletal: no edema Dx/Plan (1) Post-thrombotic syndrome Code(s): I87.009 - POSTTHROMBOTIC SYNDROME W/O COMPLICATIONS OF UNSP EXTREMITY Status: Chronic (2) Anticoagulant long-term use Code(s): Z79.01 - CUSTODIAL (CURRENT) USE OF ANTICOAGULANTS Status: Chronic (3) Hypothyroidism Code(s): E03.9 - HYPOTHYROIDISM, UNSPECIFIED Status: Acute Qualifiers: Hypothyroidism type: unspecified Qualified Code(s): E03.9 - Hypothyroidism , unspecified (4) Femur fracture, left Code(s): S72.92XA - UNSP FRACTURE OF LEFT FEMUR, INIT ENCNTR FOR CLOSED FRACTURE Status: Acute Qualifiers: Fracture type: closed (5) Chronic pain syndrome Code(s): G89.4 - CHRONIC PAIN SYNDROME Status: Chronic (6) HTN (hypertension) Code(s): I10 - ESSENTIAL (PRIMARY) HYPERTENSION Status: Chronic Qualifiers: Hypertension type: essential hypertension Qualified Code(s): I10 - Essential (primary) hypertension - Plan patient doing well post op -: agree with early reinstitution of pradaxa * .
[2018-11-14] MEDS: Zonisamide 25 MG CAP PO SCH (20:36)
[2018-11-14] MEDS: Docusate 100 MG CAP PO SCH (20:36)
[2018-11-15 05:49] LABS: Hemoglobin 8.4 g/dL (12.0-16.0); Mean Corpuscular HGB CONC 30.4 g/dL (32.0-36.0); Mean Corpuscular Hemoglobin 34.4 pg (27.0-31.0); Mean Platelet Volume 8.5 fL (7.4-10.4); Platelet Count 690 thou/uL (130-400); RBC Distribution Width 11.9 % (11.5-14.5); Red Blood Cell (RBC) Count 2.45 mill/uL (4.20-5.40); White Blood Cell (WBC) Count 16.8 thou/uL (4.8-10.8)
[2018-11-15] MEDS: Levothyroxine Sodium 50 MCG TAB PO SCH (05:58)
[2018-11-15] MEDS: Morphine ER 30 MG TAB PO SCH ×2 (05:58→14:58)
[2018-11-15] MEDS: Ketorolac Tromethamine 30 MG/ML VIAL IVP SCH ×2 (05:59→12:00)
[2018-11-15] MEDS: Acetaminophen ER (8hr) 650 MG TAB PO PRN (05:59)
--- NOTE | 2018-11-15 09:04 | PDOC.PN ---
- Subjective Encounter Start Date: 11/15/18 Encounter Start Time: 09:01 Subjective: no fever, chills, cogh. desires to go home - Objective MAR Reviewed: Yes Vital Signs & Weight: Vital Signs (12 hours) Temp Pulse Resp BP Pulse Ox 11/15/18 07:58 98.9 F 73 12 96/58 L 92 L 11/15/18 04:28 98.0 F 70 18 101/61 95 11/15/18 00:09 98.1 F 73 18 95/54 L 96 11/14/18 22:06 99/62 Weight Admit Weight 88 lb Weight 88 lb I&O: 11/14/18 11/15/18 11/16/18 06:59 06:59 06:59 Intake Total 2490 Output Total 1250 Balance 1240 Result Diagrams: 11/15/18 05:28 11/13/18 06:50 Phys Exam - Physical Examination Neck: no JVD Respiratory: clear to auscultation bilateral Cardiovascular: RRR, no significant murmur Gastrointestinal: soft, positive bowel sounds Musculoskeletal: no edema Dx/Plan (1) Anticoagulant long-term use Code(s): Z79.01 - [facility] (CURRENT) USE OF ANTICOAGULANTS Status: Chronic (2) Hypothyroidism Code(s): E03.9 - HYPOTHYROIDISM, UNSPECIFIED Status: Chronic Qualifiers: Hypothyroidism type: unspecified Qualified Code(s): E03.9 - Hypothyroidism , unspecified (3) Femur fracture, left Code(s): S72.92XA - UNSP FRACTURE OF LEFT FEMUR, INIT ENCNTR FOR CLOSED FRACTURE Status: Acute Qualifiers: Encounter type: initial encounter Femur location: intertrochanteric Fracture type: closed Fracture alignment: displaced Qualified Code(s): S72.142A - Displaced intertrochanteric fracture of left femur, initial encounter for closed fracture (4) Chronic pain syndrome Code(s): G89.4 - CHRONIC PAIN SYNDROME Status: Chronic (5) HTN (hypertension) Code(s): I10 - ESSENTIAL (PRIMARY) HYPERTENSION Status: Chronic Qualifiers: Hypertension type: essential hypertension Qualified Code(s): I10 - Essential (primary) hypertension (6) Pressure ulcer Code(s): L89.90 - PRESSURE ULCER OF UNSPECIFIED SITE, UNSPECIFIED STAGE Status : Acute Qualifiers: Pressure injury location: buttock Pressure injury stage: stage 2 Laterality: unspecified laterality Qualified Code(s): L89.302 - Pressure ulcer of unspecified buttock, stage 2 - Plan patient has leukocytosis. no fever or evidence for infection -: cont wound care, PT,OT -: cont pradaxa * .
--- NOTE | 2018-11-15 09:31 | PRG ---
DATE OF SERVICE: 11/15/2018 SUBJECTIVE: Nanda is now postop day #2 from the left hip conversion of a retrograde nail to antegrade nail for intertrochanteric periprosthetic hip fracture. She is doing very well, but clinical panels demonstrate she has only ambulated approximately three pivot steps from the bed to the chair and she is having difficult time getting up out of bed. OBJECTIVE: GENERAL: She is alert, oriented, responsive, and appropriate as usual. Her incision showed no strikethrough. NEUROLOGIC: She is neurovascularly intact in both lower extremities. IMPRESSION: 1. Severe osteopenia. 2. Severe malnutrition. 3. Status post left hip revision antegrade nail for intertrochanteric hip fracture, periprosthetic nature. PLAN: Continue current care, but she will need either around the clock home care or skilled facility placement, but she understands that for discharge criteria, she needs to be getting up, moving, and little more independent. Job ID: [id number]
[2018-11-15] MEDS: Citalopram 20 MG TAB PO SCH (09:44)
[2018-11-15] MEDS: diphenhydrAMINE 25 MG CAP PO SCH ×2 (09:44→15:04)
[2018-11-15] MEDS: Loratadine 10 MG TAB PO SCH (09:44)
[2018-11-15] MEDS: Folic Acid 1 MG TAB PO SCH (09:45)
[2018-11-15] MEDS: Dabigatran 150 mg Capsule PO SCH (09:45)
[2018-11-15] MEDS: Ferrous Gluconate 324 MG TAB PO SCH (09:45)
[2018-11-15] MEDS: Senokot S 8.6-50 MG TAB PO SCH (09:45)
[2018-11-15] MEDS: Prenatal Vitamin 1 TAB PO SCH (09:45)
[2018-11-15] MEDS: Multivitamin W/ Minerals 1 TAB PO SCH (09:46)
[2018-11-15] MEDS: Topiramate 100 MG TAB PO SCH (09:46)
[2018-11-15] MEDS: Polyethylene Glycol 3350 17 GM Packet PO SCH (09:50)
[2018-11-15 15:34] VITALS: BP 107/67; TEMP 99.7
[2018-11-18] MEDS ORDERED: Cyanocobalamin 1000 MCG/ML VIAL IM SCH ×2 (09:00)
== END 2018-11-15 19:04 | disposition home health service (06) | DRG 498 ==
LOC: ERS 15:07 → SURG B 16:50
PROVIDERS: ADMIT Orthopaedic Surgery; ATTEND Orthopaedic Surgery
PROC: 0QW Lower Bones, Revision (ICD-10-PCS; principal; 2018-11-13)
DX: S72.142A Displaced intertrochanteric fracture of left femur, initial encounter for closed fracture (principal); M97.02XA Periprosthetic fracture around internal prosthetic left hip joint, initial encounter; E44.0 Moderate protein-calorie malnutrition; Z68.1 Body mass index [BMI] 19.9 or less, adult; D62 Acute posthemorrhagic anemia; S51.812A Laceration without foreign body of left forearm, initial encounter; E87.6 Hypokalemia; N18.2 Chronic kidney disease, stage 2 (mild); I87.009 Postthrombotic syndrome without complications of unspecified extremity; M54.9 Dorsalgia, unspecified; D51.9 Vitamin B12 deficiency anemia, unspecified; L89.302 Pressure ulcer of unspecified buttock, stage 2; I12.9 Hypertensive chronic kidney disease with stage 1 through stage 4 chronic kidney disease, or unspecified chronic kidney disease; K59.00 Constipation, unspecified; M19.90 Unspecified osteoarthritis, unspecified site; E03.9 Hypothyroidism, unspecified; M85.80 Other specified disorders of bone density and structure, unspecified site; G89.4 Chronic pain syndrome; K21.9 Gastro-esophageal reflux disease without esophagitis; F41.8 Other specified anxiety disorders; R29.6 Repeated falls; Z86.711 Personal history of pulmonary embolism; Z90.3 Acquired absence of stomach [part of]; Z85.028 Personal history of other malignant neoplasm of stomach; Z90.81 Acquired absence of spleen; Z79.01 Long term (current) use of anticoagulants; Z79.891 Long term (current) use of opiate analgesic; Z88.1 Allergy status to other antibiotic agents; Z88.0 Allergy status to penicillin; Z88.8 Allergy status to other drugs, medicaments and biological substances; W01.0XXA Fall on same level from slipping, tripping and stumbling without subsequent striking against object, initial encounter; Y93.K1 Activity, walking an animal
CPT/HCPCS: 36415; 51702; 72170; 76000; 80053; 81003; 82550; 83690; 83880; 85025; 85027; 85610; 85652; 85730; 86140; 86850; 86900; 86901; 87086; 93005; 96361; 96374; 96376; C1713; C1769; G0390; J0131; J0670; J1100; J1580; J1885; J2001; J2250; J2270; J2274; J2405; J2704; J3010; J3370; J3490; Q0163